=== PATIENT | male | born 1975 | race Caucasian/White ===

== ENCOUNTER 2025-02-07 09:39 | Emergency (ER) | payer OTHER, SELFPAY ==
[2025-02-07 09:39] VITALS: BP 144/96; PULSE 79; RESP 14; TEMP 36.6; O2SAT 98; BMI 38.9
--- NOTE | 2025-02-07 10:05 | CT_ITS ---
PROCEDURE: ABDOMEN/PELVIS W IV CONT ONLY 02/07/2025 REASON FOR EXAM: ABDOMINAL PAIN TECHNIQUE: Procedure Code: [id number] Modality: CT Procedure: ABDOMEN/PELVIS W IV CONT ONLY Coronal and Sagittal reconstruction series were provided. CONTRAST: Isovue 370 80 VOLUME: 85 mL One or more dose reduction techniques were used (e.g., Automated exposure control, adjustment of the mA and/or kV according to patient size, use of iterative reconstruction technique. RADIATION DOSE SUMMARY: CTDlvol: 23.74 mGy DLP: 1309.81 mGycm COMPARISON: None. FINDINGS: Lung bases: Clear. Liver: Diffuse steatosis. Gallbladder: Unremarkable. Spleen: Unremarkable. Pancreas: Unremarkable. Adrenals: Unremarkable. Kidneys: No hydronephrosis. No nephrolithiasis. Bladder: Unremarkable. Reproductive Organs: Unremarkable. Bowel: No bowel wall thickening. No bowel obstruction. Colonic diverticulosis with no evidence of acute diverticulitis. Appendix: Normal. Lymph nodes: No lymphadenopathy. Vasculature: No aneurysm. Peritoneum / Retroperitoneum: No free air or free fluid. Bones: No acute bony abnormalities. CT/Abdomen/Pelvis W IV Cont ONLY IMPRESSION: No acute abdominopelvic abnormalities. Colonic diverticulosis with no evidence of acute diverticulitis. Reading Location: [id number]
--- NOTE | 2025-02-07 10:09 | EX.ED.DYSGE1 ---
HPI History of Present Illness Chief Complaint: Abd Pain Narrative Narrative: Chief complaint and HPI: 49-year-old male with no significant past medical history presents for evaluation of abdominal pain. Patient states for several weeks he has been having intermittent abdominal pain. Describes it as crampy. Periumbilical but occasional epigastric. Endorses acid reflux in which he takes [id number] Pepcid. States several months ago he used to take multiple doses of ibuprofen daily for knee pain. No longer takes the ibuprofen. Denies daily alcohol use. No history of ulcers. Associated symptom is diarrhea and nausea. Occasional bloating. He denies any fever, chills, shortness of breath, chest pain, urinary symptoms. Does not follow regularly with a primary care physician. Review of systems: See HPI Medications: As listed on the chart Allergies: As listed on the chart PFSH: Per chart Vital signs: As listed on the chart. Reviewed. Physical exam: Gen: A&O x3, NAD Head: Normocephalic, atraumatic Eyes: No sclera icterus, conjunctiva clear ENT: Moist mucous membranes CV: RRR, no murmurs Resp: Lungs CTA BL, no w/r/c GI: Abd soft, non-distended, non-tender, no r/r/g Musc: Full ROM, no deformity Skin: Warm, dry Neuro: Alert, oriented, grossly intact, sensation intact Psych: Cooperative, appropriate mood and affect PFS PFS Home Medications ?Medication ?Instructions ?Recorded ?Last Taken ?Type ondansetron 4 mg disintegrating 4 mg PO Q8H PRN PRN Nausea #10 tabs 02/07/25 Unknown Rx tablet pantoprazole 40 mg tablet,delayed 40 mg PO DAILY 30 days #30 tabs 02/07/25 Unknown Rx release (Protonix) Allergy/AdvReac Type Severity Reaction Status Date / Time No Known Allergies Allergy Verified 02/07/25 09:39 Surgical History (Updated 02/07/25 @ 09:45 by No Walls) Hx of knee surgery Social History Smoking Status: Former smoker EXAM Physical Exam Const Vital Signs: 02/07/25 09:39 02/07/25 11:57 02/07/25 14:24 Temperature 98 F Temperature Source Temporal Pulse Rate 79 74 70 Respiratory Rate 14 16 16 Blood Pressure 144/96 H 148/94 H 168/89 H Blood Pressure Mean 112 112 115 Pulse Ox 98 97 98 Oxygen Delivery Method Room Air Room Air MDM MDM MDM Narrative Medical decision making narrative: 49-year-old male with no significant past medical history presents for evaluation of abdominal pain. Patient states for several weeks he has been having intermittent abdominal pain. Describes it as crampy. Periumbilical but occasional epigastric. Endorses acid reflux in which he takes [id number] Pepcid. States several months ago he used to take multiple doses of ibuprofen daily for knee pain. No longer takes the ibuprofen. Denies daily alcohol use. Differential diagnosis includes but is not limited to GERD, gastritis, PUD, pancreatitis, IBS, colitis, gallbladder disease. Tylenol, GI cocktail, Pepcid ordered for symptoms. Abdominal pain workup ordered including CT abdomen pelvis. CBC unremarkable. CMP shows transaminitis with an AST of 56 and ALT of 133. I do not have previous labs to compare to. No hyperbilirubinemia. Lipase elevated at 111. UA negative for UTI. CT abdomen pelvis shows diverticulosis without diverticulitis. Gallbladder and pancreas unremarkable. Liver steatosis. Given that CT abdomen pelvis is not the best test for gallbladder pathology will obtain gallbladder ultrasound given his laboratory abnormalities. Ultrasound of the gallbladder shows diffusely hyperechoic liver, suggestive of hepatic steatosis. Although other diffuse liver diseases can have this appearance. Bile ducts normal with common bile duct measuring 1.1 mm in diameter. Gallbladder unremarkable. At this point in time, patient's pain may be secondary to GERD. Given his mildly elevated liver enzymes as well as lipase, I did consult Dr. Zamora with GI. States this can be either the cause from his fatty liver versus gastritis. Agreed with Protonix. Follow-up in his office. Patient updated of all results of her and understand the plan. Zofran as needed for nausea and vomiting. Referred to primary care physician and GI. Impression: 1. Abdominal pain 2. GERD 3. Fatty liver 4. Mild transaminitis 5. Mildly elevated lipase Lab Data Labs: Laboratory Results - last 24 hr 02/07/25 02/07/25 09:54 11:18 WBC 6.0 RBC 5.20 Hgb 16.0 Hct 46.4 MCV 89.2 MCH 30.8 MCHC 34.5 RDW Std Deviation 39.8 RDW Coeff of Fannie 12.1 Plt Count 171 MPV 9.8 Immature Gran % (Auto) 0.200 Neut % (Auto) 65.5 Lymph % (Auto) 24.7 Pratt % (Auto) 5.8 Eos % (Auto) 3.3 Baso % (Auto) 0.5 Absolute Neuts (auto) 3.9 Absolute Lymphs (auto) 1.48 Nucleated RBC % 0 Sodium 142 Potassium 3.7 Chloride 108 Carbon Dioxide 23.7 Anion Gap 10 BUN 9 Creatinine 0.83 Estim Creat Clear Calc 130.64 Est GFR (MDRD) Non-Af 108 BUN/Creatinine Ratio 10.3 Glucose 115 H Calcium 8.7 Total Bilirubin 0.26 AST 56 H ALT 133 H Alkaline Phosphatase 114 Total Protein 6.8 Albumin 4.4 Globulin 2.4 Albumin/Globulin Ratio 1.8 Lipase 111 H Urine Color Straw Urine Clarity Clear Urine pH 6.5 Ur Specific [place] 1.030 Urine Protein 15 H Urine Glucose (UA) Normal Urine Ketones Negative Urine Occult Blood Negative Urine Nitrite Negative Urine Bilirubin Negative Urine Urobilinogen Normal Ur Leukocyte Esterase Negative Urine RBC 0 SEEN Urine WBC 0 SEEN Ur Squamous Epith Cells 0 SEEN Urine Bacteria 0 SEEN Urine Mucus 0 SEEN Radiography Diagnostic Testing: Clinical Impression(s) from Imaging Studies Abdomen/Pelvis CT 02/07/25 10:05 IMPRESSION: No acute abdominopelvic abnormalities. Colonic diverticulosis with no evidence of acute diverticulitis. Reading Location: [facility] Abdomen Ultrasound 02/07/25 12:21 IMPRESSION: Diffusely hyperechoic liver, suggesting hepatic steatosis, although other diffuse liver diseases can have this appearance. Reading Location: [facility] Discharge Plan Triage Chief Complaint: Abd Pain ED Provider: Oniel Askew Dx/Rx/DC Orders Clinical Impression: Abdominal pain, GERD (gastroesophageal reflux disease) Instructions: ED Abdominal Pain Unkn Cause Male... Prescriptions: New pantoprazole [Protonix] 40 mg tablet,delayed release (DR/EC) 40 mg PO DAILY 30 Days Qty: 30 0RF ondansetron 4 mg tablet,disintegrating 4 mg PO Q8H PRN PRN (Reason: Nausea) Qty: 10 0RF Primary Care Provider: Care Physician,No [facility] Mckeon,Kojo, MD [Med Staff - Active Staff, Family Practice] - 3-5 Days Evelio Zamora DO [Med Staff - Active Staff, Gastroenterology] - 3-5 Days Activity Restrictions/Additional Instructions: Your liver enzymes and lipase were mildly elevated here in the emergency department. Your imaging did show fatty liver. You need to follow-up with these outpatient. Follow-up with primary care physician as well as GI physician. Will place on Protonix Zofran as needed for nausea and vomiting. Return back to the ED if symptoms change or worsen. Recommend refraining from spicy foods and limit caffeine intake. Print Language: Greek Disposition Disposition: Home, Self Care
[2025-02-07 10:15] LABS: Hematocrit 46.4 % (40-54); Hemoglobin 16.0 g/dL (13.0-16.5); Immature Granulocytes Count 0.010 X10^3/uL (0.0-0.0); Mean Corp Hgb Conc 34.5 g/dL (32-36); Mean Corpuscular Volume 89.2 fL (80-94); Mean Platelet Vol. 9.8 fl (6.2-12.0); NRBC Flagged by Analyzer 0 % (0-5); Platelet Count 171 K/mm3 (150-450); RBC Distribution Width CV 12.1 % (11.6-14.6); RBC Distribution Width SD 39.8 fl (35.1-43.9); Red Blood Count 5.20 M/mm3 (4.6-6.2); White Blood Count 6.0 K/mm3 (4.4-11.0)
[2025-02-07] MEDS: Lidocaine 2% Viscous15 ML UDC 15 ML PO (10:22)
[2025-02-07] MEDS: 0.9% Normal Saline (1000mL) 1,000 ML 999 ML IV (10:22)
[2025-02-07] MEDS: Famotidine 200 MG/20 ML MDV 20 MG in 0.9% Normal Saline (Pres. free 8 ML 300 MG IV (10:31)
[2025-02-07 11:20] LABS: Mucous, Urine 0 SEEN /hpf (<or=2+); Red Blood Cells-Urine 0 SEEN /hpf (0-5); Squamous Epithelial Cells - UA 0 SEEN /hpf (0-5)
[2025-02-07 11:29] LABS: AST(SGOT) 56 U/L (<=37); Alanine Aminotransfer ALT/SGPT 133 U/L (<=46); Albumin, Serum 4.4 g/dL (3.5-5.0); Alkaline Phosphatase 114 U/L (40-129); BUN 9 mg/dL (4-19); BUN/Creat Ratio 10.3 RATIO (10-20); Calcium,Total 8.7 mg/dL (7.6-11.0); Estimated Creatinine Clearance 130.64 ml/min (50-250); Globulin 2.4 g/dL (2.2-4.2); Glucose 115 mg/dL (70-99); Lipase 111 U/L (13-75); Potassium 3.7 mmol/L (3.3-5.1)
[2025-02-07 11:29] LABS: Color, Urine Straw (Yellow); Glucose, Dipstick Normal (Normal); Ketone-Dipstick Negative (Negative); Leukocyte Esterase-Dipstick Negative /ul (Negative); Nitrite-Dipstick Negative (Negative); Occult Blood-Urine Negative /ul (Negative); Protein-Dipstick 15 mg/dl (Negative); Specific Gravity, Urine 1.030 (1.002-1.030); Urine Bilirubin Dipstick Negative (Negative)
--- OUTSIDE RECORDS SUMMARY | 2025-02-07 11:29 | XMS RPT_ITS | CCD ---
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 1 Each 1 04/06/2021 Active Start: 10-21-2019 End: 07-03-2022 take 2 puff(s) by inhalation every four hours as needed albuterol HFA (PROAIR HFA) 90 mcg/actuation inhaler Indications: Cough Inhale 2 Puffs as instructed every 4 hours as needed. 6.7 g 10/21/2019 07/03/2022 Discontinued (Course of therapy completed) Comment on above: Inhale 2 Puffs as in structed every 4 hours as needed. Inhale 2 Puffs as in structed every 4 hours as needed for wheezing/shortness of breath. amoxicillin 875 mg oral tablet (1 source) Penicillin-class Antibacterial Start: 3 End: 3 take 1 tablet by mouth twice daily amoxicillin (AMOXIL) 875 mg tablet Take 1 tablet by mouth twice daily for 7 days. 14 tablet 0 06/20/2022 06/27/2022 Active Comment on above: Take 1 tablet by krystin th twice daily for 7 days. Completed/Discontinued Medications Medication Drug Class(es) Dates Sig (Normalized) Sig (Original) benzonatate 100 mg oral capsule (3 sources) Non-narcotic Antitussive Start: 10-21-2019 End: 07-03-2022 take 2 capsules by mouth every eight hours as needed for cough and cough benzonatate (TESSALON PERLE) 100 mg capsule Indications: Cough Take 2 capsules by mouth three times daily as needed. 30 capsule 10/21/2019 07/03/2022 Discontinued (Course of therapy completed) Comment on above: Take 2 capsules by m outh three times daily as needed. cetirizine hydrochloride 10 mg oral tablet (2 sources) Histamine-1 Receptor Antagonist Start: 06-20-2022 take 1 tablet by mouth once daily cetirizine (ZYRTEC) 10 mg tablet Take 1 tablet by mouth once daily. 30 tablet 0 06/20/2022 Active Comment on above: Take 1 tablet by krystin once daily. fluticasone propionate 0.05 mg/actuat metered dose nasal spray (2 sources) Corticosteroid Start: 06-20-2022 take 2 spray(s) by mouth once daily fluticasone (FLONASE) 50 mcg/actuation nasal spray Use 2 Sprays in each nostril once daily. Rinse mouth after use. 9.9 mL 0 06/20/2022 Active Comment on above: Use 2 Sprays in each nostril once daily. Rinse mouth after use. Problems Active Problems Problem Classification Problem Date Documented Da te Episodic/Chronic Open wounds of extremities (1 source) Laceration of finger; Translations: [Laceration of left little finger without foreign body without damage to nail, initial encounter] Episodic Other ear and sense organ disorders (1 source) Hearing loss of right ear; Translations: [Unspecified hearing loss, right ear] Chronic Other nutritional; endocrine; and metabolic disorders (3 sources) Obesity; Translations: [Obesity, unspecified] Onset: 05-04-2014 05-04-2014 Chronic Other upper respiratory infections (1 source) Acute upper respiratory infection; Translations: [Acute upper respiratory infection, unspecified] Episodic Otitis media and related conditions (2 sources) Acute non-suppurative otitis media - serous; Translations: [Acute serous otitis media, right ear] Episodic Past or Other Problems Problem Classification Problem Date Documented Da te Episodic/Chronic Other and unspecified benign neoplasm (3 sources) Dysplastic nevus of skin; Translations: [Melanocytic nevi, unspecified] Onset: 05-04-2014 05-04-2014 Episodic Residual codes; unclassified (3 sources) Tobacco use and exposure - finding; Translations: [Tobacco use] Onset: 05-04-2014 05-04-2014 Episodic Results Test Name Value Interpretation Reference Range Facility [facility] 07-03-2022 CNOV Office Visit (UCWSTR ) LINDEN HORTON ([id number]) 1975 M Date Time Provider Department 07/03/22 9:45 AM ISAAC ROSS [facility] During your visit today, we recorded the following information about you: Temperature Pulse Respiration Blood pressure 97.3 degrees 89/minute 19/minute 128/76 Weight 110.4 kg Isaac Ross MD 07/03/2022 10:04 AM Signed Patient presents with: Ear Problem: Was treated for ear infection, but ear still is muffled x 1.5 weeks HPI: Diminished hearing for 2 weeks. Treated for right otitis media here 06/20/2022 with amoxicillin. Positive symptoms: decreased hearing, childhood ear infections (maybe 5 as an adult), Negative symptoms: Cough, Sore throat, Earache, Sinus pressure, Nasal Congestion, Rhinorrhea, Fever, otorrhea, OTC: allergy medicine, ear popping maneuvers MEDICATIONS: Current Outpatient Medications Medication Sig cetirizine (ZYRTEC) 10 mg tablet Take 1 tablet by mouth once daily. fluticasone (FLONASE) 50 mcg/actuation nasal spray Use 2 Sprays in each nostril once daily. Rinse mouth after use. albuterol HFA (PROVENTIL HFA, VENTOLIN HFA) 90 mcg/actuation inhaler Inhale 2 Puffs as instructed every 4 hours as needed for wheezing/shortness of breath. No current facility-administered medications for this visit. ALLERGIES: ALLERGIES No Known Allergies VITALS: BP 128/76 Pulse 89 Temp 36.3 ?C (97.3 ?F) Resp 19 Wt 110.4 kg (243 lb 6.4 oz) SpO2 97% BMI 37.01 kg/m? PHYSICAL EXAM: GEN: Pleasant, in no acute distress. HEENT: PERRL, EOMI, conjunctiva clear Ears: canals clear. TMs without erythema, bulge, or effusion. RTM has trace hyperemia and retraction, no movement with insufflation. Sinuses: non-tender frontal sinus, non-tender maxillary sinuses Throat: moist mucous membranes, no erythema, no exudate Neck: supple, no thyromegaly, no lymphadenopathy HEART: regular rate and rhythm, no murmurs LUNGS: clear to auscultation, no wheezes or crackles, no increased WOB ASSESSMENT/PLAN: 1. Decreased hearing, right - ICD9: 389.9, ICD10: H91.91 (primary diagnosis) 2. Eustachian tube dysfunction, right - ICD9: 381.81, ICD10: H69.81 Diminished hearing seems to be from retraction due to eustachian tube dysfunction. Possible residual clear effusion. Continue allergy care. Follow up with ENT/audiology if hearing is not returning. Isaac Ross MD Allergies As of Date: 07/03/2022 (No Known Allergies) Date Reviewed: 07/03/2022 Reviewed by: Princess Cleveland MA - Fully Assessed Reason for Visit: Ear Problem [38] Cmt: Was treated for ear infection, but ear still is muffled x 1.5 weeks Primary Visit Diagnosis:Decreased hearing, right [H91.91] Other Visit Diagnosis:Eustachian tube dysfunction, right [H69.81] Prescriptions as of 07/03/2022 - cetirizine (ZYRTEC) 10 mg tablet Take 1 tablet by mouth once daily. - fluticasone (FLONASE) 50 mcg/actuation nasal spray Use 2 Sprays in each nostril once daily. Rinse mouth after use. - albuterol HFA (PROVENTIL HFA, VENTOLIN HFA) 90 mcg/actuation inhaler Inhale 2 Puffs as instructed every 4 hours as needed for wheezing/shortness of breath. Problem List As Of Date 07/03/2022 Noted Resolved Multiple atypical nevi [D22.9] 05/04/2014 Obesity [E66.9] 05/04/2014 Tobacco use [Z72.0] 05/04/2014 Medications Discontinued During This Encounter Prescriptions - albuterol HFA (PROAIR HFA) 90 mcg/actuation inhaler (Discontinued) Reported on 04/06/2021 - benzonatate (TESSALON PERLE) 100 mg capsule (Discontinued) Reported on 04/06/2021 Encounter Status:Closed by ISAAC ROSS on 07/03/22 [facility] CNOVon 06-20-2022 CNOV Office Visit (UCWSTR ) LINDEN HORTON ([id number]) 1975 M Date Time Provider Department 06/20/22 4:15 PM ELAINE BENSON [facility] During your visit today, we recorded the following information about you: Temperature Pulse Respiration Blood pressure 98.8 degrees 86/minute 18/minute 126/84 Weight 109.5 kg Elaine Benson APRN.CNP 06/20/2022 4:17 PM Signed Amoxicillin as ordered Tylenol (generic acetaminophen) 500 mg-2 tabs every 8 hrs. as needed for fever and aches Ibuprofen 600 mg (3-200mg tablets) every 6 hours Zyrtec 10 mg By mouth daily at bedtime Flonase 2 sprays in each nostril once a day Follow up with pcp prn * Seek medical care immediately, call 911, go to ER if you have chest pain, difficulty breathing, shortness of breath, inability to swallow. Elaine Benson APRN.CNP 06/20/2022 4:22 PM Signed Subjective The history is provided by the patient. No translator and interpreter was used. HPI Linden Horton is a 47 year old male who presents today for CC of worsening right ear pain for one day. Over the past week he has had cough, congesiton, runny nose and sore throat. He has used tylenol and otc cold medications. He denies any fever, chills, nausea, vomiting or diarrhea. Declines any testing. BP 126/84 Pulse 86 Temp 37.1 ?C (98.8 ?F) (Tympanic) Resp 18 Wt 109.5 kg (241 lb 6.4 oz) SpO2 97% BMI 36.70 kg/m? 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 HENT: Positive for congestion, ear pain, sinus pain and sore throat. Respiratory: Positive for cough. Negative for sputum production, shortness of breath and wheezing. Cardiovascular: Negative for chest pain. Gastrointestinal: Negative for abdominal pain, diarrhea, nausea and vomiting. Musculoskeletal: Negative for myalgias. Neurological: Positive for headaches. Objective Physical Exam Vitals and nursing note reviewed. Constitutional: Appearance: He is not toxic-appearing. HENT: Head: Normocephalic and atraumatic. Right Ear: Ear canal and external ear normal. A middle ear effusion is present. Tympanic membrane is injected and bulging. Left Ear: Tympanic membrane, ear canal and external ear normal. Nose: Mucosal edema, congestion and rhinorrhea present. Right Sinus: No maxillary sinus tenderness or frontal sinus tenderness. Left Sinus: No maxillary sinus tenderness or frontal sinus tenderness. Mouth/Throat: Pharynx: Uvula midline. Posterior oropharyngeal erythema (mild) present. No oropharyngeal exudate. Tonsils: No tonsillar abscesses. Comments: Thin Clear Post Nasal Drainage Cardiovascular: Rate and Rhythm: Normal rate and regular rhythm. Heart sounds: Normal heart sounds. Pulmonary: Effort: Pulmonary effort is normal. Breath sounds: Normal breath sounds. No decreased breath sounds, wheezing, rhonchi or rales. Lymphadenopathy: Head: Right side of head: No submental, submandibular, tonsillar or preauricular adenopathy. Left side of head: No submental, submandibular, tonsillar or preauricular adenopathy. Cervical: No cervical adenopathy. Right cervical: No superficial cervical adenopathy. Left cervical: No superficial cervical adenopathy. Neurological: Mental Status: He is alert. ASSESSMENT/PLAN: 1. Non-recurrent acute serous otitis media of right ear - ICD9: 381.01, ICD10: H65.01 (primary diagnosis) - Will begin treatment with Amoxicillin for 7 days - Supportive care with plenty of fluids, rest, and analgesia prn. - Follow up in one week if symptoms persist or worsen. 2. URI, acute - ICD9: 465.9, ICD10: J06.9 - Discussed viral etiology and rationale for treatment. - Symptomatic treatment with prn analgesia - Supportive care with fluids and rest - zyrtec, flonase Diagnosis and treatment plan were discussed and questions were answered to the patient's satisfaction. Pt acknowledged understanding of concepts and follow up plan. Specific signs and symptoms that would indicate the need for higher level of care were discussed in detail warranting prompt ER evaluation. Elaine Benson APRN.QUALITY IMPROVEMENT COORDINATOR (RN) Referring Provider: SELF [[id number]] Allergies As of Date: 06/20/2022 (No Known Allergies) Date Reviewed: 06/20/2022 Reviewed by: Kiara Webb LPN - Fully Assessed Reason for Visit: Ear Pa (more content not included)... Normal [facility] [place] XR Chest PA and Lateralon IMPRESSION: Subtle mild groundglass opacities in the periphery of the right lower lung zones, findings which may be seen in the setting of parotid history of viral pneumonia. Cushion Mat Maker: MANDY Transcribe Date/Time: Apr 06 2021 10:36A Dictated by : CAESAR SALCIDO MD This examination was interpreted and the report reviewed and electronically signed by: CAESAR SALCIDO MD on Apr 06 2021 10:37AM [facility] [place] DIVISION OF RADIOLOGY * * *Final Report* * * DATE OF EXAM: Apr 06 2021 10:31AM WOX [id number] - XR CHEST 2V FRONTAL/LAT / PROCEDURE REASON: COVID-19 * * * * Physician Interpretation * * * * EXAMINATION: CHEST RADIOGRAPH (2 VIEW FRONTAL & LATERAL) CLINICAL HISTORY: COVID-19 MQ: XC2_6 EXAM DATE/TIME: 04/06/2021 10:31 AM COMPARISON: Chest x-ray dated October 21, 2019 RESULT: Lines, tubes, and devices: None. Lungs and pleura: Subtle mild groundglass opacities in the periphery of the right lower lung zones. No pleural effusion or pneumothorax. Cardiomediastinal silhouette: Normal cardiomediastinal silhouette. Bones and soft tissues: Degenerative changes are present within the thoracic spine. DIVISION [facility]OLOGY [facility] * * *Final Report* * * DATE OF EXAM: Apr 06 2021 10:31AM WOX [id number] - XR CHEST 2V FRONTAL/LAT / PROCEDURE REASON: COVID-19 * * * * Physician Interpretation * * * * EXAMINATION: CHEST RADIOGRAPH (2 VIEW FRONTAL & LATERAL) CLINICAL HISTORY: COVID- MQ: XC2_6 EXAM DATE/TIME: 04/06/2021 10:31 AM COMPARISON: Chest x-ray dated October 21, 2019 RESULT: Lines, tubes, and devices: None. Lungs and pleura: Subtle mild groundglass opacities in the periphery of the right lower lung zones. No pleural effusion or pneumothorax. Cardiomediastinal silhouette: Normal cardiomediastinal silhouette. Bones and soft tissues: Degenerative changes are present within the thoracic spine. IMPRESSION IMPRESSION: Subtle mild groundglass opacities in the periphery of the right lower lung zones, findings which may be seen in the setting of parotid history of viral pneumonia. Cushion Mat Maker: MANDY Transcribe Date/Time: Apr 06 2021 10:36A Dictated by : CAESAR SALCIDO MD This examination was interpreted and the report reviewed and electronically signed by: CAESAR SALCIDO MD on Apr 06 2021 10:37AM EST [facility] Radiology Study observation (narrative) [facility] XR Chest PA and LateralOrder ed By: [facility] Provider on 04-06-2021 [facility] XR WRIST MINIMUM 3 VIEWS LEF Ton 07-10-2019 XR WRIST MINIMUM 3 VIEWS LEFT ORIGINAL XR WRIST MINIMUM 3 VIEWS LEFT CLINICAL STATEMENT: pain. COMPARISON: None FINDINGS: There is a corticated osseous density identified adjacent to the stylet process, most compatible with remote injury. There is no acute fracture or dislocation identified. No additional contributory abnormality. IMPRESSION: No acute process. Interpreted By: Kiran Wade MD Preliminary Report By: Kiran Wade MD Electronically Signed By: Kiran Wade MD Dictated Date: 07/10/2019 1:08:46 PM Prelim Date: 07/10/2019 1:08:46 PM Sign Date: 07/10/2019 1:10:39 PM Ordering Provider:Javier Shirley [facility] Vital Signs Date Time Vital Sign Value Performing Clinician Faci lity 07-03-2022 09:34-0400 Body temperature 97.3 [degF] Isaac Ross MD Work Phone: [facility] 07-03-2022 09:34-0400 Body weight 110.41 kg Isaac Ross MD Work Phone: [facility] 07-03-2022 09:34-0400 Diastolic blood pressure 76 mm[Hg] Isaac Ross MD Work Phone: [facility] 07-03-2022 09:34-0400 Heart rate 89 /min Isaac Ross MD Work Phone: [facility] 07-03-2022 09:34-0400 Respiratory rate 19 /min Isaac Ross MD Work Phone: [facility] 07-03-2022 09:34-0400 SaO2% (BldA) [Mass fraction] 97 % Isaac Ross MD Work Phone: [facility] 07-03-2022 09:34-0400 Systolic blood pressure 128 mm[Hg] Isaac Ross MD Work Phone: [facility] 06-20-2022 16:07-0400 Body temperature 98.8 [degF] Elaine Benson GAMING ASSOCIATE.QUALITY IMPROVEMENT COORDINATOR (RN) Work Phone: [facility] 06-20-2022 16:07-0400 Body weight 109.5 kg Elaine Benson GAMING ASSOCIATE.QUALITY IMPROVEMENT COORDINATOR (RN) Work Phone: [facility] 06-20-2022 16:07-0400 Diastolic blood pressure 84 mm[Hg] Elaine Kelley GAMING ASSOCIATE.QUALITY IMPROVEMENT COORDINATOR (RN) Work Phone: [facility] 06-20-2022 16:07-0400 Heart rate 86 /min Elaine Kelley GAMING ASSOCIATE.QUALITY IMPROVEMENT COORDINATOR (RN) Work Phone: [facility] 06-20-2022 16:07-0400 Respiratory rate 18 /min Elaine Kelley GAMING ASSOCIATE.QUALITY IMPROVEMENT COORDINATOR (RN) Work Phone: [facility] 06-20-2022 16:07-0400 SaO2% (BldA) [Mass fraction] 97 % Elaine Kelley GAMING ASSOCIATE.QUALITY IMPROVEMENT COORDINATOR (RN) Work Phone: [facility] 06-20-2022 16:07-0400 Systolic blood pressure 126 mm[Hg] Elaine Kelley GAMING ASSOCIATE.QUALITY IMPROVEMENT COORDINATOR (RN) Work Phone: [facility] 08-16-2019 10:19-0400 Height 170.2 cm [facility] 08-16-2019 10:18-0400 Body Temperature 97.2 [degF] [facility] 08-16-2019 10:18-0400 BP Diastolic 96 mm[Hg] [facility] 08-16-2019 10:18-0400 BP Systolic 157 mm[Hg] [facility] 08-16-2019 10:18-0400 Pulse (Heart Rate) 96 /min [facility] 08-16-2019 10:18-0400 Pulse Oximetry 97 % [facility] 08-16-2019 10:18-0400 Respiratory Rate 16 /min [facility] Encounters Encounter Date Encounter Type Care Provider Facility Start: 07-03-2022 End: 07-03-2022 ambulatory Facility:[facility] Start: 07-03-2022 End: 07-03-2022 Patient encounter procedure Isaac Ross MD Work Phone: [facility] Comment on above: Decreased hearing, r ight (Primary Dx); Eustachian tube dysfunction, right Start: 06-20-2022 End: 06-20-2022 ambulatory Facility:[facility] Start: 06-20-2022 End: 06-20-2022 Patient encounter procedure Elaine Benson GAMING ASSOCIATE.QUALITY IMPROVEMENT COORDINATOR (RN) Work Phone: [facility] Comment on above: Non-recurrent acute serous otitis media of right ear (Primary Dx); URI, acute Start: 04-06-2021 End: 04-06-2021 Subsequent hospital visit by physician Xr [facility] Work Phone: Radiology Comment on above: COVID-19 [U07.1] Start: 08-16-2019 End: 08-16-2019 Emergency department patient visit [facility] Start: 08-16-2019 End: 08-16-2019 Emergency department patient visit [facility] Procedures Date Procedure Procedure Detail Performing Clinician Start: 04-06-2021 Radiologic exam ches t 2 views Bre James PA-C Work Phone: Start: 05-04-2014 Lipid 1996 panel - S lorna or Plasma Xr [facility] Work Phone: Plan of Treatment Date Care Activity Detail Author Start: 05-31-2027 Urine microalbumin profile DTaP,Tdap,Td Vaccine (3 - Td or Tdap) [facility] Start: 11-18-2023 Covid-19 Vaccine ( season) Covid-19 Vaccine ( season) [facility] Start: 11-18-2023 Influenza [facility] Start: 11-17-2022 Influenza vaccination INFLUENZA (Season Ended) [facility] Start: 03-19-2022 DEPRESSION ASSESSMENT DEPRESSION ASSESSMENT [facility] Start: 08-09-2021 COVID-19 VACCINE (3 - Booster for Gwen series) COVID-19 VACCINE (3 - Booster for Gwen series) [facility] Start: 2021 COLOGUARD (FIT-DNA) COLOGUARD (FIT-DNA) [facility] Start: 2021 Colonoscopy COLONOSCOPY [facility] Start: 2021 COLORECTAL CANCER SCREENING COLORECTAL CANCER SCREENING [facility] Start: [address] COLONOGRAPHY [facility] Start: 2021 DIABETES SCREEN DIABETES SCREEN [facility] Start: 2021 Diabetes Screening Diabetes Screening [facility] Start: 2021 FECAL OCCULT BLOOD FECAL OCCULT BLOOD [facility] Start: 2021 Screening for malignant neoplasm of colon [facility] Start: 2021 SIGMOIDOSCOPY SIGMOIDOSCOPY [facility] Start: 11-18-2019 Influenza vaccination INFLUENZA VACCINE (Season Ended) [facility] Start: 05-04-2019 Lipid panel Lipid Screening [facility] Start: 05-04-2019 LIPID SCREEN LIPID SCREEN [facility] Start: 2016 Fasting lipid profile LIPID SCREENING [facility] Start: 1995 Hepatitis B Vaccine (1 of 3 - 19+ 3-dose series) Hepatitis B Vaccine (1 of 3 - 19+ 3-dose series) [facility] Start: 1995 Third diphtheria, tetanus and acellular pertussis (DTaP) vaccination TDAP (ADULT) [facility] Start: 1994 Anxiety Screening Anxiety Screening [facility] Start: 1994 Depression Screening Depression Screening [facility] Start: 1994 HEPATITIS C SCREENING HEPATITIS C SCREENING [facility] Start: 1994 Hepatitis C screening Hepatitis C Screening [facility] Start: 1994 HIV SCREENING HIV SCREENING [facility] Start: 1994 HIV screening HIV Screening [facility] Start: 1994 Tetanus vaccination TETANUS [facility] Start: 03-20-1994 Urine microalbumin profile DTAP,TDAP,TD (2 - Tdap) [facility] Start: 1989 HIV screening HIV SCREENING DISCUSSION [facility] Start: 1976 HEPATITIS B (1 of 3 - 3-dose series) HEPATITIS B (1 of 3 - 3-dose series) [facility] Immunizations Immunization Date Immunization Notes Care Provider Abhishek calabrese 03-19-1994 tetanus and diphther ia toxoids, adsorbed, preservative free, for adult use (2 Lf of tetanus toxoid and 2 Lf of diphtheria toxoid) Elaine Benson APRN.[facility] Work Phone: [facility] Work Phone: Payers Date Payer Category Payer Medicaid [id number] 2019 Unknown [employer] [id number] 2019-Present [id number] 2019 Unknown [id number] 2014 Medicaid [id number] 1975 Unknown [id number] Social History Date Type Detail Facility Start: 08-16-2019 Tobacco smoking stat us AZIS Never smoker [facility] Start: 01-15-2018 End: 08-16-2019 Tobacco use and exposure Never used [facility] Start: 08-16-2019 End: 04-06-2021 Alcohol intake Current drinker of alcohol (finding) [facility] Start: 1975 Sex Assigned At Not on file [facility] Start: 03-07-2021 End: 04-06-2021 Exposure to SARS-CoV-2 (event) Not sure [facility] Start: 01-15-2018 End: 06-20-2022 Tobacco smoking status NHIS Ex-smoker [facility] Start: 03-19-1996 History of tobacco use Current smoke r [facility] Start: 03-19-1996 History of tobacco use Cigarette Smo ker [facility] Start: 02-24-2020 End: 06-20-2022 Cigarettes smoked current (pack per day) - Reported 0.5 [facility] Start: 03-30-2014 End: 06-20-2022 Tobacco Comment started age 21 [facility] Start: 05-04-2014 Alcohol Comment 1-2 beers, per month [facility] Start: 02-24-2020 End: 04-06-2021 Tobacco use panel [facility] National Score (1-10 0), lower number is lower risk Not on file [facility] Progress note 07-03-2022 Note Date & Type Note Facility 07-03-2022 Note HNO ID: [id number] Author: Isaac Ross MD Service: ? Author Type: Physician Type: Progress Notes Filed: 07/03/2022 10:04 AM Note Text: Patient presents with: Ear Problem: Was treated for ear infection, but ear still is muffled x 1.5 weeks HPI: Diminished hearing for 2 weeks. Treated for right otitis media here 06/20/2022 with amoxicillin. Positive symptoms: decreased hearing, childhood ear infections (maybe 5 as an adult), Negative symptoms: Cough, Sore throat, Earache, Sinus pressure, Nasal Congestion, Rhinorrhea, Fever, otorrhea, OTC: allergy medicine, ear popping maneuvers MEDICATIONS: Current Outpatient Medications Medication Sig cetirizine (ZYRTEC) 10 mg tablet Take 1 tablet by mouth once daily. fluticasone (FLONASE) 50 mcg/actuation nasal spray Use 2 Sprays in each nostril once daily. Rinse mouth after use. albuterol HFA (PROVENTIL HFA, VENTOLIN HFA) 90 mcg/actuation inhaler Inhale 2 Puffs as instructed every 4 hours as needed for wheezing/shortness of breath. No current facility-administered medications for this visit. ALLERGIES: ALLERGIES No Known Allergies VITALS: BP 128/76 Pulse 89 Temp 36.3 ?C (97.3 ?F) Resp 19 Wt 110.4 kg (243 lb 6.4 oz) SpO2 97% BMI 37.01 kg/m? PHYSICAL EXAM: GEN: Pleasant, in no acute distress. HEENT: PERRL, EOMI, conjunctiva clear Ears: canals clear. TMs without erythema, bulge, or effusion. RTM has trace hyperemia and retraction, no movement with insufflation. Sinuses: non-tender frontal sinus, non-tender maxillary sinuses Throat: moist mucous membranes, no erythema, no exudate Neck: supple, no thyromegaly, no lymphadenopathy HEART: regular rate and rhythm, no murmurs LUNGS: clear to auscultation, no wheezes or crackles, no increased WOB ASSESSMENT/PLAN: 1. Decreased hearing, right - ICD9: 389.9, ICD10: H91.91 (primary diagnosis) 2. Eustachian tube dysfunction, right - ICD9: 381.81, ICD10: H69.81 Diminished hearing seems to be from retraction due to eustachian tube dysfunction. Possible residual clear effusion. Continue allergy care. Follow up with ENT/audiology if hearing is not returning. Isaac Ross MD [facility] [place] History of Present illness Narrative 07-03-2022 Isaac Ross MD - 07/03/2022 9:42 AM EDT Note Date & Type Note Facility 07-03-2022 History of Presen t illness Narrative Patient presents with: Ear Problem: Was treated for ear infection, but ear still is muffled x 1.5 weeks HPI: Diminished hearing for 2 weeks. Treated for right otitis media here 06/20/2022 with amoxicillin. Positive symptoms: decreased hearing, childhood ear infections (maybe 5 as an adult), Negative symptoms: Cough, Sore throat, Earache, Sinus pressure, Nasal Congestion, Rhinorrhea, Fever, otorrhea, OTC: allergy medicine, ear popping maneuvers MEDICATIONS: Current Outpatient Medications Medication Sig cetirizine (ZYRTEC) 10 mg tablet Take 1 tablet by mouth once daily. fluticasone (FLONASE) 50 mcg/actuation nasal spray Use 2 Sprays in each nostril once daily. Rinse mouth after use. albuterol HFA (PROVENTIL HFA, VENTOLIN HFA) 90 mcg/actuation inhaler Inhale 2 Puffs as instructed every 4 hours as needed for wheezing/shortness of breath. No current facility-administered medications for this visit. ALLERGIES: ALLERGIES No Known Allergies VITALS: BP 128/76 Pulse 89 Temp 36.3 C (97.3 F) Resp 19 Wt 110.4 kg (243 lb 6.4 oz) SpO2 97% BMI 37.01 kg/m PHYSICAL EXAM: GEN: Pleasant, in no acute distress. HEENT: PERRL, EOMI, conjunctiva clear Ears: canals clear. TMs without erythema, bulge, or effusion. RTM has trace hyperemia and retraction, no movement with insufflation. Sinuses: non-tender frontal sinus, non-tender maxillary sinuses Throat: moist mucous membranes, no erythema, no exudate Neck: supple, no thyromegaly, no lymphadenopathy HEART: regular rate and rhythm, no murmurs LUNGS: clear to auscultation, no wheezes or crackles, no increased WOB ASSESSMENT/PLAN: 1. Decreased hearing, right - ICD9: 389.9, ICD10: H91.91 (primary diagnosis) 2. Eustachian tube dysfunction, right - ICD9: 381.81, ICD10: H69.81 Diminished hearing seems to be from retraction due to eustachian tube dysfunction. Possible residual clear effusion. Continue allergy care. Follow up with ENT/audiology if hearing is not returning. Isaac Ross MD documented in this encounter [facility] Progress note 06-20-2022 Note Date & Type Note Facility 06-20-2022 Note HNO ID: [id number] Author: Elaine Benson APRN.QUALITY IMPROVEMENT COORDINATOR (RN) Service: ? Author Type: Nurse Practitioner Type: Progress Notes Filed: 06/20/2022 4:22 PM Note Text: Subjective The history is provided by the patient. No translator and interpreter was used. HPI Linden Horton is a 47 year old male who presents today for CC of worsening right ear pain for one day. Over the past week he has had cough, congesiton, runny nose and sore throat. He has used tylenol and otc cold medications. He denies any fever, chills, nausea, vomiting or diarrhea. Declines any testing. BP 126/84 Pulse 86 Temp 37.1 ?C (98.8 ?F) (Tympanic) Resp 18 Wt 109.5 kg (241 lb 6.4 oz) SpO2 97% BMI 36.70 kg/m? 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 HENT: Positive for congestion, ear pain, sinus pain and sore throat. Respiratory: Positive for cough. Negative for sputum production, shortness of breath and wheezing. Cardiovascular: Negative for chest pain. Gastrointestinal: Negative for abdominal pain, diarrhea, nausea and vomiting. Musculoskeletal: Negative for myalgias. Neurological: Positive for headaches. Objective Physical Exam Vitals and nursing note reviewed. Constitutional: Appearance: He is not toxic-appearing. HENT: Head: Normocephalic and atraumatic. Right Ear: Ear canal and external ear normal. A middle ear effusion is present. Tympanic membrane is injected and bulging. Left Ear: Tympanic membrane, ear canal and external ear normal. Nose: Mucosal edema, congestion and rhinorrhea present. Right Sinus: No maxillary sinus tenderness or frontal sinus tenderness. Left Sinus: No maxillary sinus tenderness or frontal sinus tenderness. Mouth/Throat: Pharynx: Uvula midline. Posterior oropharyngeal erythema (mild) present. No oropharyngeal exudate. Tonsils: No tonsillar abscesses. Comments: Thin Clear Post Nasal Drainage Cardiovascular: Rate and Rhythm: Normal rate and regular rhythm. Heart sounds: Normal heart sounds. Pulmonary: Effort: Pulmonary effort is normal. Breath sounds: Normal breath sounds. No decreased breath sounds, wheezing, rhonchi or rales. Lymphadenopathy: Head: Right side of head: No submental, submandibular, tonsillar or preauricular adenopathy. Left side of head: No submental, submandibular, tonsillar or preauricular adenopathy. Cervical: No cervical adenopathy. Right cervical: No superficial cervical adenopathy. Left cervical: No superficial cervical adenopathy. Neurological: Mental Status: He is alert. ASSESSMENT/PLAN: 1. Non-recurrent acute serous otitis media of right ear - ICD9: 381.01, ICD10: H65.01 (primary diagnosis) - Will begin treatment with Amoxicillin for 7 days - Supportive care with plenty of fluids, rest, and analgesia prn. - Follow up in one week if symptoms persist or worsen. 2. URI, acute - ICD9: 465.9, ICD10: J06.9 - Discussed viral etiology and rationale for treatment. - Symptomatic treatment with prn analgesia - Supportive care with fluids and rest - zyrtec, flonase Diagnosis and treatment plan were discussed and questions were answered to the patient's satisfaction. Pt acknowledged understanding of concepts and follow up plan. Specific signs and symptoms that would indicate the need for higher level of care were discussed in detail warranting prompt ER evaluation. Elaine Benson APRN.LASHA [facility] [place] History of Present illness Narrative 06-20-2022 Elaine Benson APRN.LASHA - 06/20/2022 4:17 PM EDT Note Date & Type Note Facility 06-20-2022 History of Presen t illness Narrative Subjective The history is provided by the patient. No translator and interpreter was used. HPI Linden Horton is a 47 year old male who presents today for CC of worsening right ear pain for one day. Over the past week he has had cough, congesiton, runny nose and sore throat. He has used tylenol and otc cold medications. He denies any fever, chills, nausea, vomiting or diarrhea. Declines any testing. 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 HENT: Positive for congestion, ear pain, sinus pain and sore throat. Respiratory: Positive for cough. Negative for sputum production, shortness of breath and wheezing. Cardiovascular: Negative for chest pain. Gastrointestinal: Negative for abdominal pain, diarrhea, nausea and vomiting. Musculoskeletal: Negative for myalgias. Neurological: Positive for headaches. Objective Physical Exam Vitals and nursing note reviewed. Constitutional: Appearance: He is not toxic-appearing. HENT: Head: Normocephalic and atraumatic. Right Ear: Ear canal and external ear normal. A middle ear effusion is present. Tympanic membrane is injected and bulging. Left Ear: Tympanic membrane, ear canal and external ear normal. Nose: Mucosal edema, congestion and rhinorrhea present. Right Sinus: No maxillary sinus tenderness or frontal sinus tenderness. Left Sinus: No maxillary sinus tenderness or frontal sinus tenderness. Mouth/Throat: Pharynx: Uvula midline. Posterior oropharyngeal erythema (mild) present. No oropharyngeal exudate. Tonsils: No tonsillar abscesses. Comments: Thin Clear Post Nasal Drainage Cardiovascular: Rate and Rhythm: Normal rate and regular rhythm. Heart sounds: Normal heart sounds. Pulmonary: Effort: Pulmonary effort is normal. Breath sounds: Normal breath sounds. No decreased breath sounds, wheezing, rhonchi or rales. Lymphadenopathy: Head: Right side of head: No submental, submandibular, tonsillar or preauricular adenopathy. Left side of head: No submental, submandibular, tonsillar or preauricular adenopathy. Cervical: No cervical adenopathy. Right cervical: No superficial cervical adenopathy. Left cervical: No superficial cervical adenopathy. Neurological: Mental Status: He is alert. ASSESSMENT/PLAN: 1. Non-recurrent acute serous otitis media of right ear - ICD9: 381.01, ICD10: H65.01 (primary diagnosis) - Will begin treatment with Amoxicillin for 7 days - Supportive care with plenty of fluids, rest, and analgesia prn. - Follow up in one week if symptoms persist or worsen. 2. URI, acute - ICD9: 465.9, ICD10: J06.9 - Discussed viral etiology and rationale for treatment. - Symptomatic treatment with prn analgesia - Supportive care with fluids and rest - zyrtec, flonase Diagnosis and treatment plan were discussed and questions were answered to the patient's satisfaction. Pt acknowledged understanding of concepts and follow up plan. Specific signs and symptoms that would indicate the need for higher level of care were discussed in detail warranting prompt ER evaluation. Elaine Benson APRN.CNP documented in this encounter [facility] Instructions 06-20-2022 Patient Instructions Note Date & Type Note Facility 06-20-2022 Instructions Elaine Benson APRN.CNP - 06/20/2022 4:17 PM EDT Amoxicillin as ordered Tylenol (generic acetaminophen) 500 mg-2 tabs every 8 hrs. as needed for fever and aches Ibuprofen 600 mg (3-200mg tablets) every 6 hours Zyrtec 10 mg By mouth daily at bedtime Flonase 2 sprays in each nostril once a day Follow up with pcp prn * Seek medical care immediately, call 911, go to ER if you have chest pain, difficulty breathing, shortness of breath, inability to swallow. documented in this encounter [facility] History of Present illness Narrative 04-06-2021 Ariadna Mcnamara RT(R) - 04/06/2021 10:30 AM EST Note Date & Type Note Facility 04-06-2021 History of Presen t illness Narrative Radiology Service Progress Note PATIENT NAME: Linden Horton DATE OF SERVICE: April 06, 2021 TIME: 10:26 AM PATIENT IDENTITY VERIFICATION COMPLETED USING TWO (2) IDENTIFIERS: Name and Date of confirmed by patient verbally. FALL SCREENING: Has the patient had 2 falls in the last year or 1 fall with injury or currently using an Ambulatory Assistive Device (Walker, Cane, Wheelchair, Crutches, etc.)? No PATIENT GENDER DATA: Male PATIENT RELEVANT IMPLANT DATA REVIEWED: Not Applicable RADIOLOGY DEPARTMENT: General X-ray: Exam(s) Completed: Chest X-Ray PERIPHERAL IV DATA: Not applicable SIGNED BY: RT Marbella(R) April 06, 2021 10:26 AM documented in this encounter [facility] Evaluation note Note Date & Type Note Facility Evaluation note Diagnosis Non-recurrent acute serous otitis media of right ear- Primary URI, acute Acute upper respiratory infections of unspecified site documented in this encounter [facility] Evaluation note Note Date & Type Note Facility Evaluation note Diagnosis Decreased hearing, right- Primary Eustachian tube dysfunction, right documented in this encounter [facility] Summary Purpose Family History No Family History Records FoundNo Family History Records FoundNo Family History Records Found Advance Directives No Advanced Directives Records FoundNo Advanced Directives Records FoundNo Advanced Directives Records Found Discharge Instructions * Instructions* Shayne Vega Jr., PA-C - 08/16/2019 Steri strips were utilized because of the interval of time that passed between the incident and coming to the hospital. Keep steri strips dry and allow them to fall off on their own. If any signs of infection or drainage return to the emergency department for further evaluation and treatment * Attachments The following attachments cannot be sent through Care Everywhere. * Lacerations (Ecuadorean) documented in this encounter Assessments Diagnosis Laceration of left little finger without foreign body without damage to nail, initial encounter Additional Source Comments (unrecognized sect ion and content) No Status Records FoundNo Status Records FoundNo Status Records Found INFORMATION SOURCE (unrecogn ized section and content) DATE CREATED AUTHOR 07/10/2019 [facility] ([place]) DATE CREATED AUTHOR AUTHOR'S ORGANIZ ATION 08/16/2019 [facility] DATE CREATED AUTHOR AUTHOR'S ORGANIZ ATION 07/04/2022 [facility] [place] Reason for Visit (unrecogniz ed section and content) Reason Comments Laceration left 5th digit Reason Comments Ear Pain Right ear pain and s inus pressure x 1 day Reason Comments Ear Problem Was treated for ear infection, but ear still is muffled x 1.5 weeks Source Comments (unrecognize d section and content) In the event this informatio n is protected by the Federal Confidentiality of Alcohol and Drug Abuse Patient Records regulations: The Federal rules restrict any use of the information to criminally investigate or prosecute any alcohol or drug abuse patient.[facility] the event this information is protected by the Federal Confidentiality of Alcohol and Drug Abuse Patient Records regulations: The Federal rules restrict any use of the information to criminally investigate or prosecute any alcohol or drug abuse patient.[facility] the event this information is protected by the Federal Confidentiality of Alcohol and Drug Abuse Patient Records regulations: The Federal rules restrict any use of the information to criminally investigate or prosecute any alcohol or drug abuse patient.[facility] FOR RECORDS PERTAINING TO PATIENTS WHO ARE OR HAVE BEEN ENROLLED IN A CHEMICAL DEPENDENCY/SUBSTANCEABUSE PROGRAM, SOME INFORMATION MAY BE OMITTED. This clinical summary was aggregated from multiple sources. Caution should be exercised in using it in the provision of clinical care. This summary normalizes information from multiple sources, and as a consequence, information in this document may materially change the coding, format and clinical context of patient data. In addition, data may be omitted in some cases. CLINICAL DECISIONS SHOULD BE BASED ON THE PRIMARY CLINICAL RECORDS. [facility]. provides no warranty or guarantee of the accuracy or completeness of information in this document.
[2025-02-07 11:30] LABS: Anion Gap 10 (5-15); Carbon Dioxide 23.7 mmol/L (21.0-32.0); Chloride 108 mmol/L (98-108)
[2025-02-07 11:57] VITALS: BP 148/94; PULSE 74; RESP 16; O2SAT 97
--- NOTE | 2025-02-07 12:21 | US_ITS ---
PROCEDURE: ABDOMEN LIMITED 02/07/2025 REASON FOR EXAM: ELEVATED LIVER ENZYMES, ABDOMINAL PAIN TECHNIQUE: Procedure Code: USABDL Modality: US Procedure: ABDOMEN LIMITED COMPARISON: CT Abdomen and Pelvis w/Contrast, 02/07/2025 FINDINGS: LIVER ECHOGENICITY: Diffuse increase in hepatic parenchymal echogenicity. SIZE: Normal measuring 17.3 cm in length. CONTOUR: Smooth. MASS: None. PORTAL VEIN: Normal direction hepatopetal portal venous flow. GALLBLADDER SIZE: Contracted. STONES: None. SLUDGE: None. WALL THICKNESS: Normal measuring 2.0 mm. PERICHOLECYSTIC FLUID: None. SONOGRAPHIC SAXENA'S SIGN: Negative. BILE DUCTS: Normal with the CBD measuring 4.1 mm in diameter. PANCREAS: Unremarkable as visualized. The distal pancreas is obscured by overlying bowel gas. RIGHT KIDNEY: Normal size and echogenicity with a length of 11.6 cm. No hydronephrosis, nephrolithiasis, cyst or mass seen. ASCITES/EFFUSIONS: None. OTHER: None. US/Abdomen Limited IMPRESSION: Diffusely hyperechoic liver, suggesting hepatic steatosis, although other diffu se liver diseases can have this appearance. Reading Location: [id number]
--- NOTE | 2025-02-07 13:00 | CM.ED ---
Social work Reason for referral: no PCP Referral source: case find SW entered patient's room, introducing self and role at [facility]. Patient welcomed SW visit and patient's , Elaine, at bedside. Patient confirmed lacking PCP and accepted information regarding [facility] doctors accepting new patients and Jovita Davison. Patient denied further needs at this time. Bryanna Vaughn, FREELANCE PATTERNMAKER, SUPER[employer]OR [employer]
[2025-02-07 14:24] VITALS: BP 168/89; PULSE 70; RESP 16; O2SAT 98
[2025-02-07 15:55] VITALS: BP 168/89; PULSE 70; RESP 16; TEMP 36.6; O2SAT 98
== END 2025-02-07 15:56 | disposition home or self-care (01) ==
PROVIDERS: Emergency Provider Surgery; Visit Provider Surgery
DX: R10.33 Periumbilical pain (principal); R10.13 Epigastric pain; K21.9 Gastro-esophageal reflux disease without esophagitis; R19.7 Diarrhea, unspecified; R11.0 Nausea; K76.0 Fatty (change of) liver, not elsewhere classified; R74.8 Abnormal levels of other serum enzymes; R74.01 Elevation of levels of liver transaminase levels; Z87.891 Personal history of nicotine dependence
CPT/HCPCS: 74177; 76705; 80053; 81001; 83690; 85025; 96361; 96365; 96366; 99283; Q9967; A4216